=== PATIENT | male | born 1940 | race Hispanic/Latino ===

== ENCOUNTER → 2020-03-03 | Outpatient (CLI) | payer MEDICARE ==
[~2020-03-03] MED LIST: CEFTIN250 MG PO; CIPRO500 MG PO; HEMOCYTE PLUS1 EACH PO; LISINOPRIL10 MG PO; MOBIC15 MG PO; ULTRAM 50MG50 MG PO
== END ==
LOC: US 07:42
PROVIDERS: ATTEND Urology
DX: N28.1 Cyst of kidney, acquired (principal)
CPT/HCPCS: 76770

== ENCOUNTER → 2021-03-06 | Outpatient (CLI) | payer MEDICARE | LOC: US 07:42 | PROVIDERS: ATTEND Urology | DX: N28.1 Cyst of kidney, acquired (principal) | CPT/HCPCS: 76770 ==

== ENCOUNTER 2024-06-21 16:53 | Inpatient (IN) | payer MEDICARE ==
[~2024-06-21] VITALS: Ht 167.6 cm; Wt 58.1 kg
[2024-06-21 17:35] LABS: BASOPHILS % 0.4 % (0.0-1.0); EOSINOPHILS # (AUTO) 0.3 (0.0-0.4); EOSINOPHILS % 4.4 % (0.0-6.0); HEMATOCRIT 34.9 % (38.2-49.6); HEMOGLOBIN 11.5 g/dL (14.0-18.0); LYMPHOCYTES % 41.9 % (18.0-39.1); MEAN CORPUSCULAR HEMOGLOBIN 31.3 pg (28-32); MEAN CORPUSCULAR VOLUME 94.8 fL (81-99); MONOCYTES # (AUTO) 0.7 (0.2-0.8); MONOCYTES % 9.7 % (4.4-11.3); NEUTROPHILS # (AUTO) 3.1 (2.1-6.9); NEUTROPHILS % 43.3 % (38.7-80.0); PLATELET COUNT 196 x10e3/uL (140-360); RED BLOOD COUNT 3.68 x10e6/uL (4.3-5.7); RED CELL DISTRIBUTION WIDTH 13.4 % (11.7-14.4); WHITE BLOOD COUNT 7.09 x10e3/uL (4.8-10.8)
[2024-06-21 17:55] LABS: ALBUMIN 3.9 g/dL (3.5-5.0); ALBUMIN/GLOBULIN RATIO 1.4 (0.8-2.0); ANION GAP 14.5 mmol/L (8-16); BILIRUBIN,TOTAL 0.4 mg/dL (0.2-1.2); CALCIUM 8.8 mg/dL (8.4-10.2); CREATININE, SERUM 2.51 mg/dL (0.72-1.25); POTASSIUM 4.5 mmol/L (3.5-5.1); TOTAL PROTEIN 6.7 g/dL (6.5-8.1)
[2024-06-21] MEDS: CALCIUM GLUC 1 G/50 ML NACL 50 ML IV ONE (18:00)
[2024-06-21 18:02] LABS: TROPONIN I 0.018 ng/mL (0-0.300)
[2024-06-21] MEDS: GLUCAGON FOR INJ 1 MG VIAL IV ONE (18:02)
[2024-06-21] MEDS ORDERED: HYDRALAZINE HCL 20 MG/ML VIAL IV STA (18:47)
[2024-06-21] MEDS ORDERED: SODIUM CHLORIDE FLUSH 10 ML SYR INJ PRN (19:00)
[2024-06-21 19:40] VITALS: PULSE 49; RESP 18; TEMP 97.7
[2024-06-21] MEDS: HYDRALAZINE HCL 20 MG/ML VIAL IV STA (20:08)
[2024-06-21] MEDS ORDERED: HYDRALAZINE HCL 20 MG/ML VIAL IV PRN (20:15)
[2024-06-21 21:00] VITALS: BP 141/70; PULSE 75; RESP 15; TEMP 98.1; O2SAT 98
[2024-06-21] MEDS ORDERED: BRIMONIDINE TAR10 ML OS (21:20)
[2024-06-21] MEDS ORDERED: TRAVOPROST2.5 ML OU (21:20)
[2024-06-21] MEDS ORDERED: DOXAZOSIN MESYLA2 MG PO (21:20)
[2024-06-21] MEDS ORDERED: LOSARTAN-HCTZ1 EACH PO (21:20)
[2024-06-21] MEDS ORDERED: AMLODIPINE BESYL5 MG PO (21:20)
[2024-06-21] MEDS ORDERED: FENOFIBRATE145 M1 PO (21:20)
[2024-06-21] MEDS: MUPIROCIN 2% OINT 22 GM TUBE TOP SCH (21:44)
[2024-06-21 22:00] VITALS: BP 140/66; PULSE 65; RESP 14; O2SAT 100
[2024-06-21 22:12] VITALS: BP 140/66; PULSE 65; RESP 14; TEMP 98.1; O2SAT 100
[2024-06-21 23:00] VITALS: BP 155/62; PULSE 53; RESP 11; O2SAT 100
[2024-06-22] VITALS (12 sets, daily range): BP systolic 125–176; BP diastolic 48–82; PULSE 41–132; RESP 10–18; TEMP 96.5–98; O2SAT 98–100
[2024-06-22] MEDS ORDERED: ONDANSETRON HCL INJ 2MG/ML 2ML 2 MG/ML VIAL IV PRN (00:30)
[2024-06-22] MEDS ORDERED: MELATONIN 3 MG TAB PO PRN (00:30)
[2024-06-22] MEDS ORDERED: MAGNESIUM/ALUMINUM/SIMETHICONE 30 ML UDC PO PRN (00:30)
[2024-06-22] MEDS ORDERED: ALBUTEROL SULF 0.083% NEB SOLN 3 ML NEB NEB PRN (00:30)
[2024-06-22] MEDS ORDERED: DOCUSATE SODIUM 100 MG CAP PO PRN (00:30)
[2024-06-22] MEDS: SODIUM CHLORIDE 0.9% 1000ML 1,000 ML IV SCH (02:49)
[2024-06-22 03:51] LABS: TROPONIN I 0.038 ng/mL (0-0.300)
[2024-06-22 07:06] LABS: BASOPHILS % 0.6 % (0.0-1.0); EOSINOPHILS # (AUTO) 0.2 (0.0-0.4); EOSINOPHILS % 3.3 % (0.0-6.0); HEMATOCRIT 36.7 % (38.2-49.6); HEMOGLOBIN 12.2 g/dL (14.0-18.0); LYMPHOCYTES # (AUTO) 2.3 (1.0-3.2); LYMPHOCYTES % 32.2 % (18.0-39.1); MEAN CORPUSCULAR HEMOGLOBIN 31.7 pg (28-32); MEAN CORPUSCULAR HGB CONC 33.2 g/dL (31-35); MEAN CORPUSCULAR VOLUME 95.3 fL (81-99); MONOCYTES # (AUTO) 0.7 (0.2-0.8); MONOCYTES % 9.7 % (4.4-11.3); NEUTROPHILS # (AUTO) 3.9 (2.1-6.9); NEUTROPHILS % 54.1 % (38.7-80.0); PLATELET COUNT 200 x10e3/uL (140-360); RED BLOOD COUNT 3.85 x10e6/uL (4.3-5.7); RED CELL DISTRIBUTION WIDTH 13.2 % (11.7-14.4); WHITE BLOOD COUNT 7.24 x10e3/uL (4.8-10.8)
[2024-06-22 07:53] LABS: ALBUMIN 3.4 g/dL (3.5-5.0); ALBUMIN/GLOBULIN RATIO 1.4 (0.8-2.0); ANION GAP 13.3 mmol/L (8-16); BILIRUBIN,TOTAL 0.5 mg/dL (0.2-1.2); CALCIUM 8.8 mg/dL (8.4-10.2); CREATININE, SERUM 1.95 mg/dL (0.72-1.25); POTASSIUM 4.3 mmol/L (3.5-5.1); TOTAL PROTEIN 5.9 g/dL (6.5-8.1)
[2024-06-22 07:54] LABS: CHOL/HDL RATIO 2.8 (3.9-4.7); PHOSPHORUS 3.6 MG/DL (2.3-4.7)
[2024-06-22 08:04] LABS: THYROID STIMULATING HORMONE 1.635 uIU/mL (0.350-4.940)
[2024-06-22] MEDS: FENOFIBRATE 145 MG TAB PO SCH (08:31)
[2024-06-22] MEDS: MULTIVITAMINS/MINERALS TAB PO SCH (08:31)
[2024-06-22] MEDS: DOXAZOSIN MESYLATE 2 MG TAB PO SCH (08:31)
[2024-06-22] MEDS: BRIMONIDINE TARTRATE 0.15% OPTH DRPS 10ML BTL OP SCH (08:34)
[2024-06-22] MEDS: TRAVOPROST(OPTH) 2.5 ML BTL OP SCH (08:34)
[2024-06-22 14:00] LABS: TROPONIN I 0.033 ng/mL (0-0.300)
[2024-06-22] MEDS: HYDRALAZINE HCL 20 MG/ML VIAL IV PRN (22:18)
[2024-06-23] VITALS (25 sets, daily range): BP systolic 100–171; BP diastolic 46–103; PULSE 45–87; RESP 8–20; TEMP 97.6–98.3; O2SAT 97–100
[2024-06-23 07:11] LABS: BASOPHILS % 0.6 % (0.0-1.0); EOSINOPHILS # (AUTO) 0.4 (0.0-0.4); EOSINOPHILS % 5.3 % (0.0-6.0); HEMOGLOBIN 12.6 g/dL (14.0-18.0); LYMPHOCYTES # (AUTO) 2.5 (1.0-3.2); MEAN CORPUSCULAR HEMOGLOBIN 31.5 pg (28-32); MEAN CORPUSCULAR HGB CONC 33.2 g/dL (31-35); MONOCYTES # (AUTO) 0.7 (0.2-0.8); MONOCYTES % 9.7 % (4.4-11.3); NEUTROPHILS # (AUTO) 3.6 (2.1-6.9); NEUTROPHILS % 50.1 % (38.7-80.0); PLATELET COUNT 204 x10e3/uL (140-360); RED CELL DISTRIBUTION WIDTH 13.2 % (11.7-14.4); WHITE BLOOD COUNT 7.21 x10e3/uL (4.8-10.8)
[2024-06-23] MEDS ORDERED: FAMOTIDINE 20 MG TAB PO SCH (07:30)
[2024-06-23 07:38] LABS: ALBUMIN 3.2 g/dL (3.5-5.0); ALBUMIN/GLOBULIN RATIO 1.2 (0.8-2.0); ANION GAP 11.8 mmol/L (8-16); BILIRUBIN,TOTAL 0.5 mg/dL (0.2-1.2); CREATININE, SERUM 2.01 mg/dL (0.72-1.25); POTASSIUM 4.8 mmol/L (3.5-5.1); TOTAL PROTEIN 5.9 g/dL (6.5-8.1)
[2024-06-23] MEDS: LOSARTAN POTASSIUM 25 MG TAB PO SCH (08:23)
[2024-06-23] MEDS: FAMOTIDINE 20 MG TAB PO SCH (11:00)
[2024-06-23 13:27] LABS: INR 0.92; PROTHROMBIN TIME 12.9 seconds (11.9-14.5)
[2024-06-23] MEDS: ENOXAPARIN SOD INJ 40 MG/0.4 ML SYR SC SCH (18:36)
[2024-06-23] MEDS: DOXYCYCLINE HYCLATE TABLET 100 MG TAB PO SCH (18:36)
[2024-06-23] MEDS: TRAMADOL HCL 50 MG TAB PO PRN (19:07)
[2024-06-23] MEDS: SODIUM CHLORIDE 0.9% 500ML 500 ML ONE (19:32)
[2024-06-23] MEDS: SODIUM CHLORIDE 0.9% 1000ML 2,000 ML ONE (19:32)
[2024-06-23] MEDS: IOPAMIDOL 610MG/1ML 300 MG/ML VIAL IV ONE (19:32)
[2024-06-23] MEDS: LIDOCAINE HCL 2% LOCAL 20 ML VIAL ONE (19:32)
[2024-06-23] MEDS: Vancomycin IV 1 GM VIAL ONE (19:32)
[2024-06-23] MEDS: GENTAMICIN SULFATE 40 MG/ML 2 ML VIAL ONE (19:32)
[2024-06-23] MEDS: SODIUM CHLORIDE 0.9% 250ML 250 ML ONE (19:33)
[2024-06-23] MEDS: FENTANYL CITRATE/PF 100MCG/2 ML INJ ONE (19:33)
[2024-06-23] MEDS: MIDAZOLAM HCL 2 MG/2 ML VIAL ONE (19:33)
[2024-06-23] MEDS: SODIUM BICARBONATE 8.4% SYRING 0 ML ONE (19:33)
[2024-06-24] VITALS (40 sets, daily range): BP systolic 103–174; BP diastolic 52–130; PULSE 72–110; RESP 5–34; TEMP 98–99.6; O2SAT 94–100
[2024-06-24 07:24] LABS: BASOPHILS # (AUTO) 0.1 (0.0-0.1); BASOPHILS % 0.5 % (0.0-1.0); EOSINOPHILS # (AUTO) 0.3 (0.0-0.4); EOSINOPHILS % 3.1 % (0.0-6.0); HEMATOCRIT 37.7 % (38.2-49.6); HEMOGLOBIN 12.3 g/dL (14.0-18.0); LYMPHOCYTES # (AUTO) 1.7 (1.0-3.2); LYMPHOCYTES % 18.9 % (18.0-39.1); MEAN CORPUSCULAR HEMOGLOBIN 31.3 pg (28-32); MEAN CORPUSCULAR HGB CONC 32.6 g/dL (31-35); MEAN CORPUSCULAR VOLUME 95.9 fL (81-99); MONOCYTES # (AUTO) 0.8 (0.2-0.8); NEUTROPHILS # (AUTO) 6.2 (2.1-6.9); NEUTROPHILS % 68.3 % (38.7-80.0); PLATELET COUNT 183 x10e3/uL (140-360); RED BLOOD COUNT 3.93 x10e6/uL (4.3-5.7); RED CELL DISTRIBUTION WIDTH 13.2 % (11.7-14.4); WHITE BLOOD COUNT 9.12 x10e3/uL (4.8-10.8)
[2024-06-24] MEDS ORDERED: CEPACOL SORE THROAT LOZENGES PO PRN (07:30)
[2024-06-24 07:48] LABS: ANION GAP 15.5 mmol/L (8-16); CALCIUM 8.8 mg/dL (8.4-10.2); CREATININE, SERUM 1.66 mg/dL (0.72-1.25); POTASSIUM 4.5 mmol/L (3.5-5.1)
[2024-06-24] MEDS: ACETAMINOPHEN 325 MG TAB PO PRN (20:26)
[2024-06-24] MEDS: GUAIFENESIN/DEXTROMETHORPHAN LIQD 5 ML UDC PO PRN (20:35)
[2024-06-25] VITALS (7 sets, daily range): BP systolic 126–158; BP diastolic 52–73; PULSE 75–114; RESP 14–22; TEMP 99.2–99.8; O2SAT 96–100
[2024-06-25 07:05] LABS: BASOPHILS % 0.6 % (0.0-1.0); EOSINOPHILS # (AUTO) 0.2 (0.0-0.4); EOSINOPHILS % 4.5 % (0.0-6.0); HEMOGLOBIN 11.6 g/dL (14.0-18.0); LYMPHOCYTES # (AUTO) 1.1 (1.0-3.2); LYMPHOCYTES % 22.3 % (18.0-39.1); MEAN CORPUSCULAR HEMOGLOBIN 31.6 pg (28-32); MEAN CORPUSCULAR HGB CONC 34.1 g/dL (31-35); MEAN CORPUSCULAR VOLUME 92.6 fL (81-99); MONOCYTES # (AUTO) 0.7 (0.2-0.8); MONOCYTES % 14.4 % (4.4-11.3); NEUTROPHILS # (AUTO) 2.9 (2.1-6.9); PLATELET COUNT 153 x10e3/uL (140-360); RED BLOOD COUNT 3.67 x10e6/uL (4.3-5.7); RED CELL DISTRIBUTION WIDTH 13.3 % (11.7-14.4); WHITE BLOOD COUNT 5.06 x10e3/uL (4.8-10.8)
[2024-06-25 08:01] LABS: ANION GAP 14.3 mmol/L (8-16); BLOOD UREA NITROGEN 21.76 mg/dL (7-26); CALCIUM 8.9 mg/dL (8.4-10.2); CREATININE, SERUM 1.93 mg/dL (0.72-1.25); POTASSIUM 4.3 mmol/L (3.5-5.1)
[2024-06-25] MEDS ORDERED: Docusate Sodium PO (14:19)
[2024-06-25] MEDS ORDERED: COZAAR25 MG PO (14:19)
[2024-06-25] MEDS ORDERED: DOXYCYCLINE HY100 MG PO (14:19)
== END 2024-06-25 17:30 | disposition home or self-care (01) | DRG 243 ==
LOC: ER 17:23 → ERHOLD 19:00 → ICU 20:56 → MED/SURG3 06-25 08:12
PROVIDERS: ADMIT Internal Medicine; ATTEND Internal Medicine
PROC: 02H63JZ Insertion of Pacemaker Lead into Right Atrium, Percutaneous Approach (ICD-10-PCS; principal; 2024-06-23)
PROC: 0JH606Z Insertion of Pacemaker, Dual Chamber into Chest Subcutaneous Tissue and Fascia, Open Approach (ICD-10-PCS; 2024-06-23)
PROC: 02HK3JZ Insertion of Pacemaker Lead into Right Ventricle, Percutaneous Approach (ICD-10-PCS; 2024-06-23)
DX: I44.1 Atrioventricular block, second degree (principal); N17.9 Acute kidney failure, unspecified; I16.0 Hypertensive urgency; E78.5 Hyperlipidemia, unspecified; I12.9 Hypertensive chronic kidney disease with stage 1 through stage 4 chronic kidney disease, or unspecified chronic kidney disease; N18.30 Chronic kidney disease, stage 3 unspecified; J44.89 Other specified chronic obstructive pulmonary disease; R53.81 Other malaise; Z85.46 Personal history of malignant neoplasm of prostate; Z90.79 Acquired absence of other genital organ(s); Z96.0 Presence of urogenital implants
CPT/HCPCS: 33208; 36415; 71045; 76937; 80048; 80053; 80061; 82550; 82553; 83690; 83735; 83880; 84100; 84443; 84484; 85025; 85610; 93005; 93306; 94799; 99152; 99153; 99252; 99284; C1769; C1785; C1898; J0360; J1580; J1610; J1650; J2003; J2250; J7030; J7040; J7050

== ENCOUNTER 2024-07-14 13:52 | Emergency (ER) | payer MEDICARE ==
[~2024-07-14] VITALS: Ht 167.6 cm; Wt 61.2 kg
[~2024-07-14 13:52] MED LIST changes: +AMLODIPINE BESYL5 MG PO; +BRIMONIDINE TAR10 ML OS; +COZAAR25 MG PO; +DOXAZOSIN MESYLA2 MG PO; +DOXYCYCLINE HY100 MG PO; +Docusate Sodium PO; +FENOFIBRATE145 M1 PO; +LOSARTAN-HCTZ1 EACH PO; +TRAVOPROST2.5 ML OU
[2024-07-14 14:02] VITALS: TEMP 97.8
[2024-07-14 14:40] LABS: BASOPHILS # (AUTO) 0.1 (0.0-0.1); BASOPHILS % 0.8 % (0.0-1.0); EOSINOPHILS # (AUTO) 0.2 (0.0-0.4); EOSINOPHILS % 2.5 % (0.0-6.0); HEMATOCRIT 34.8 % (38.2-49.6); HEMOGLOBIN 11.6 g/dL (14.0-18.0); LYMPHOCYTES # (AUTO) 2.2 (1.0-3.2); LYMPHOCYTES % 34.1 % (18.0-39.1); MEAN CORPUSCULAR HEMOGLOBIN 31.2 pg (28-32); MEAN CORPUSCULAR HGB CONC 33.3 g/dL (31-35); MEAN CORPUSCULAR VOLUME 93.5 fL (81-99); MONOCYTES # (AUTO) 0.7 (0.2-0.8); MONOCYTES % 10.3 % (4.4-11.3); NEUTROPHILS # (AUTO) 3.3 (2.1-6.9); PLATELET COUNT 171 x10e3/uL (140-360); RED BLOOD COUNT 3.72 x10e6/uL (4.3-5.7); RED CELL DISTRIBUTION WIDTH 12.8 % (11.7-14.4)
[2024-07-14 15:01] LABS: ALBUMIN 3.6 g/dL (3.5-5.0); ALBUMIN/GLOBULIN RATIO 1.2 (0.8-2.0); ANION GAP 13.7 mmol/L (8-16); BILIRUBIN,TOTAL 0.6 mg/dL (0.2-1.2); CALCIUM 9.1 mg/dL (8.4-10.2); CREATININE, SERUM 1.77 mg/dL (0.72-1.25); POTASSIUM 3.7 mmol/L (3.5-5.1); TOTAL PROTEIN 6.6 g/dL (6.5-8.1)
[2024-07-14 15:07] LABS: TROPONIN I 0.022 ng/mL (0-0.300)
[2024-07-14 17:14] VITALS: PULSE 60; RESP 18
[2024-07-14] MEDS ORDERED: AUGMENTIN 500-1 EACH PO (17:24)
[2024-07-14 17:38] VITALS: BP 167/89; PULSE 68; RESP 18; TEMP 97.2; O2SAT 100
== END 2024-07-14 17:39 | disposition home or self-care (01) ==
LOC: ER 14:05
DX: R53.1 Weakness (principal); I10 Essential (primary) hypertension; E78.5 Hyperlipidemia, unspecified; H40.9 Unspecified glaucoma; Z85.46 Personal history of malignant neoplasm of prostate
CPT/HCPCS: 36415; 70450; 71045; 80053; 82550; 83690; 83880; 84484; 85025; 93005; 99284